=== PATIENT | female | born 1970 | race Caucasian/White ===

== ENCOUNTER 2022-10-23 08:48 | Emergency (ER) | payer SELFPAY ==
[~2022-10-23] VITALS: Ht 157.5 cm; Wt 79.0 kg
[2022-10-23] MEDS ORDERED: ACETAMINOPHEN 325MG TABLET PO ONE (09:00)
[2022-10-23 09:05] VITALS: BP 132/80
[2022-10-23] MEDS ORDERED: METH-653 MT (09:44)
[2022-10-23] MEDS ORDERED: METHOCARBAMOL 500MG TABLET PO ONE (10:15)
[2022-10-23] MEDS ORDERED: METHOCARBAMOL 750MG TABLET PO SCH (14:00)
== END 2022-10-23 11:06 | disposition home or self-care (01) ==
LOC: ER 08:48
DX: S20.219A Contusion of unspecified front wall of thorax, initial encounter (principal); V43.52XA Car driver injured in collision with other type car in traffic accident, initial encounter; Y93.89 Activity, other specified; Y92.410 Unspecified street and highway as the place of occurrence of the external cause
CPT/HCPCS: 71045; 99283